=== PATIENT | female | born 1945 | race Two or more races ===

== ENCOUNTER 2019-05-07 07:22 | Inpatient (IN) | payer OTHER ==
--- NOTE | 2019-05-07 08:15 | PDOC ---
History of Present Illness - General Chief Complaint: Lightheaded Stated Complaint: WEAKNESS Time Seen by Provider: 05/07/19 07:49 History Source: Patient - History of Present Illness Initial Comments: 05/07/19 08:35 The patient is a 74 year old female with a PMH of HTN, HLD and GERD who present with acute onset of vertigo and vomiting. Symptoms woke patient from sleep around 1 a.m. this morning including a sensation of room spinning. Six episodes of NBNB emesis. Denies any associated chest pain, lightheadedness, palpitations but states when she takes a deep breath she feels like she is suffocating. Remote history of similar symptoms - cannot recall what if any work-up she had at that time. Was in her usual state of health at 10 p.m. yesterday evening when she went to bed. NKDA Surgical: B/L cataract (December 2018), Appendectmoy Social: denies toxic habits PMD: Dr. Graham Olson As per EMR, patient has had no prior evaluations in our ED. Past History - Past Medical History Allergies/Adverse Reactions: Allergies Allergy/AdvReac Type Severity Reaction Status Date / Time No Known Allergies Allergy Verified 05/07/19 07:24 Home Medications: Ambulatory Orders Losartan/Hydrochlorothiazide [Losartan-Hctz 100-12.5 mg Tab] 1 each PO DAILY Omeprazole Magnesium [Prilosec Otc] 40 mg PO DAILY 05/07/19 Pravastatin Sodium [Pravachol (Nf)] 20 mg PO HS 05/07/19 COPD: No HTN: Yes Hypercholesterolemia: Yes - Surgical History Appendectomy: Yes - Suicide/Smoking/Psychosocial Hx Smoking History: Never smoked Review of Systems - Review of Systems Constitutional: No: Chills, Fever HEENTM: No: Blurred Vision Respiratory: No: Cough, Shortness of Breath Cardiac (ROS): No: Chest Pain, Lightheadedness, Palpitations, Syncope ABD/GI: No: Constipated, Diarrhea, Nausea, Vomiting Neurological: Yes: Numbness, Dizziness *Physical Exam - Vital Signs Last Vital Signs Temp Pulse Resp BP Pulse Ox 97.8 F 71 36 H 168/95 100 05/07/19 07:27 05/07/19 07:27 05/07/19 07:27 05/07/19 07:27 05/07/19 07:27 - Physical Exam General Appearance: Yes: Nourished, Appropriately Dressed HEENT: positive: Normal Voice, Hearing Grossly Normal Neck: positive: Trachea midline, Supple Respiratory/Chest: positive: Lungs Clear, Normal Breath Sounds. negative: Labored Respiration, Rapid RR, Crackles, Wheezing Cardiovascular: positive: Regular Rhythm, Regular Rate, S1, S2 Gastrointestinal/Abdominal: positive: Normal Bowel Sounds, Soft. negative: Tender Extremity: positive: Normal Capillary Refill, Normal Inspection Integumentary: positive: Normal Color, Dry, Warm Neurologic: positive: superintendent stevedoring II-XII NML intact, Fully Oriented, Alert, Other (RUE: decreased sensation, 3/5 strength; LUE: 5/5; non-ataxic gait) Heart Score/ECG Review - ECG Impressions Comment:: 05/07/19 08:18 NSR, HR 61, TWI in V1, V3 - no previous ECG in EMR ED Treatment Course - LABORATORY CBC & Chemistry Diagram: 05/07/19 09:20 05/07/19 09:20 Medical Decision Making - Medical Decision Making 05/07/19 08:39 74 y/o female with acute onset of vertigo + emesis. No tinnitus. RR recorded as tachypenic, however at time of exam patient breathing comfortably on RA Cabrera-Hallpike negative NIHSS 2 (mild decreased sensation/strength in RUE) Plan is to obtain a Head CT to r/o basilar artery stroke vs. peripheral vertigo etiology + basic labs. Consider ACS though less likely will obtain EKG, Troponin. Reassess. 05/07/19 09:[address] negative Will trial Meclizine Labs pending 05/07/19 10:24 Troponin (-) x1, CBC, CMP unremarkable Patient reassessed @ bedside, symptomatically improved s/p Meclizine At this time patient requires admission for further evaluation to r/o cerebellar stroke w/MRI. Will give OTD of ASA Patient's PMD, Dr. Stevenson admits to Dr. Bullock, chris page service 05/07/19 12:35 Patient and son counseled @ bedside amenable to admission Case d/w Dominick Hodgson patient admitted to inpatient. Clinical Impression: Vertigo, r/o basilar artery stroke *DC/Admit/Observation/Transfer Diagnosis at time of Disposition: Vertigo - Discharge Dispostion Condition at time of disposition: Fair Decision to Admit order: Yes - Referrals - Patient Instructions - Post Discharge Activity
[2019-05-07] MEDS ORDERED: SODIUM CHLORIDE 0.9% 500 ML INFUS.BAG IV ONE (08:25)
--- NOTE | 2019-05-07 08:42 | PDOC ---
NIH Stroke Scale - Initial Evaluation Level of consciousness: Alert Ask patient the month and their age: Answers both correctly Ask patient to open & close eyes; make fist and let go: Obeys both correctly Best gaze (horizontal eye movement): Normal Visual field testing: Partial hemianopia Facial paresis (Show teeth/raise eyebrows/close eyes tight): Normal symmetrical movement Motor Function: Left Arm: Normal Motor Function: Right Arm: Normal (extends arm 90 (or 45) degrees for 10 seconds without drift Motor Function: Left Leg: Normal (extends leg 30 degrees for 5 seconds without drift) Motor Function: Right Leg: Normal (extends leg 30 degrees for 5 seconds without drift) Limb Ataxia: No ataxia Sensory(Use pinprick test arms,legs,trunk,face/side to side): Mild to moderate decrease in sensation Best language (Describe picture, name items, read sentences): No Aphasia Dysarthria (read several words): Normal articulation Extinction and Inattention: No abnormality - Total Score NIH Stroke Scale Score: 2
[2019-05-07] MEDS ORDERED: MECLIZINE HCL 12.5 MG TABLET PO ONE (09:07)
[2019-05-07] MEDS ORDERED: MECLIZINE HCL 12.5 MG TABLET ONE (09:14)
[2019-05-07 09:43] LABS: BASO % 0.5 % (0-2.0); EOS % 0.3 % (0-4.5); HEMATOCRIT 38.8 % (32.4-45.2); HEMOGLOBIN 13.3 GM/dL (10.7-15.3); LYMPH % 15.8 % (8-40); MCH 30.6 pg (25.7-33.7); MCHC 34.3 g/dl (32.0-36.0); MEAN CELL VOLUME 89.3 fl (80-96); MEAN PLT VOLUME 8.8 fl (7.5-11.1); MONO % 6.7 % (3.8-10.2); NEUT % 76.7 % (42.8-82.8); PLATELET COUNT 212 K/MM3 (134-434); RBC 4.34 M/mm3 (3.60-5.2); RDW 13.3 % (11.6-15.6); WHITE BLOOD COUNT 7.7 K/mm3 (4.0-10.0)
--- NOTE | 2019-05-07 10:07 | PDOC ---
Attending Attestation - Resident Resident Name: MilaMilena - ED Attending Attestation I have performed the following: I have examined & evaluated the patient, The case was reviewed & discussed with the resident, I agree w/resident's findings & plan - HPI HPI: 05/07/19 10:07 74y/o F h/o HTN, high cholesterol p/w vertigo. Pt in usaz, went to sleep at 10am , awoke at 1:30am with vertigo, which has been persistent and waxing/waning in severity. associated with n/v and slight headache, no vision change, ? L sided parestesias but no weakness. no head injury. has had vertigo in the past but not persistent like this. - Physicial Exam PE: 05/07/19 10:09 vss, rr normal (triage rate noted), well appearing speaking on cell phone NEURO: Mental status: The patient is alert and oriented x3. Cranial nerves: Cranial nerves II through XII are intact Motor: The upper extremities are 5 over 5 in all muscle groups, LUE 4/5 likely effort related, no PD. The lower extremities are 5 over 5 in all muscle groups. No pronator drift. Sensation: Sensation is intact to light touch throughout. Cerebellar: Rzrvyi-ikvdeh-yxzq is normal in both upper extremities. Heel-knee- nieves is normal in both lower extremities. Reflexes: 2+ and symmetric in the upper and lower extremities. Gait: Normal. Heel and toe walking are normal. Tandem gait is normal. - Medical Decision Making 05/07/19 10:16 75-year-old female with history of hypertension presents with acute onset vertigo and vomiting since 1:30 AM, last normal bowel 11 hours prior to admission, neuro exam is overall nonfocal, has some subjective left-sided paresthesias. CT head shows no acute pathology EKG shows LVH but no acute ischemic changes Labs sent We'll give aspirin, meclizine Admit for stroke workup and MRI for vertigo in an elderly patient with CVA risk factors. Heart Score/ECG Review #1 ECG reviewed & interpreted by me at: 07:30 General ECG Interpretation: Sinus Rhythm, Normal Rate (61), Normal Intervals ( qtc 465, LVH), No acute ischemic changes
[2019-05-07 10:17] LABS: ALBUMIN 3.9 g/dl (3.4-5.0); ALK PHOS 126 U/L (45-117); ANION GAP 8 MMOL/L (8-16); BILIRUBIN,TOTAL 0.5 mg/dL (0.2-1); BLOOD UREA NITROGEN 13.7 mg/dL (7-18); CHLORIDE 102 mmol/L (98-107); CO2 28 mmol/L (21-32); CREATININE 0.9 mg/dL (0.55-1.3); GLUCOSE,RANDOM 123 mg/dL (74-106); POTASSIUM 4.4 mmol/L (3.5-5.1); SGOT/AST 38 U/L (15-37); SGPT/ALT 28 U/L (13-61); SODIUM 137 mmol/L (136-145); TOT PROT 7.7 g/dl (6.4-8.2)
[2019-05-07] MEDS ORDERED: ASPIRIN 81 MG CHEWABLE TABLETS PO ONE (10:55)
--- NOTE | 2019-05-07 10:56 | EKG ---
Test Reason : Blood Pressure : / mmHG Vent. Rate : 061 BPM Atrial Rate : 061 BPM P-R Int : 158 ms QRS Dur : 072 ms QT Int : 462 ms P-R-T Axes : 043 -19 -07 degrees QTc Int : 465 ms POOR DATA QUALITY, INTERPRETATION MAY BE ADVERSELY AFFECTED NORMAL SINUS RHYTHM MINIMAL VOLTAGE CRITERIA FOR LVH, MAY BE NORMAL VARIANT NONSPECIFIC ST AND T WAVE ABNORMALITY ABNORMAL ECG NO PREVIOUS ECGS AVAILABLE Confirmed by Leonel Sanchez ([id number]) on 05/07/2019 10:56:28 AM Referred By: Confirmed By:Leonel Sanchez
[2019-05-07] MEDS ORDERED: ASPIRIN 81 MG CHEWABLE TABLETS ONE (11:00)
[2019-05-07] MEDS ORDERED: ACETAMINOPHEN 325 MG TABLET (FP) PO PRN (12:03)
[2019-05-07] MEDS ORDERED: HYDROCHLOROTHIAZIDE 12.5 MG CAPSULE (FP) PO SCH (12:15)
[2019-05-07] MEDS ORDERED: PANTOPRAZOLE 40 MG TABLET (FP) ONE (12:45)
[2019-05-07] MEDS ORDERED: LOSARTAN POTASSIUM 50 MG TABLET (FP) ONE (12:46)
[2019-05-07] MEDS ORDERED: HYDROCHLOROTHIAZIDE 25 MG TABLET (FP) ONE (12:46)
[2019-05-07] MEDS: PANTOPRAZOLE 20 MG TABLET (FP) PO SCH (12:51)
[2019-05-07] MEDS: LOSARTAN POTASSIUM 50 MG TABLET (FP) PO SCH (12:51)
--- NOTE | 2019-05-07 13:57 | HP ---
Admitting History and Physical - Primary Care Physician PCP: Lorelei Bullock - Admission Chief Complaint: Dizziness. Weakness History of Present Illness: brennon Chang 74 yo female came in to [facility] with cc of dizziness and generalized weakness. Upon evaluation, her labs were unremarkable, CT head negative, VSS. She was given meclizine, which improved her symptoms. However, ER PE showed mild LUE weakness. Upon my examination, pt strength RUE+5,LUE+4, BLLE +5. History Source: Patient Limitations to Obtaining History: Language Barrier (translation provided by son at bedside) - Past Medical History Cardiovascular: Yes: HTN, Hyperlipdemia Gastrointestinal: Yes: GERD - Smoking History Smoking history: Never smoked Home Medications - Allergies Allergies/Adverse Reactions: Allergies Allergy/AdvReac Type Severity Reaction Status Date / Time No Known Allergies Allergy Verified 05/07/19 07:24 - Home Medications Home Medications: Ambulatory Orders Losartan/Hydrochlorothiazide [Losartan-Hctz 100-12.5 mg Tab] 1 each PO DAILY Omeprazole Magnesium [Prilosec Otc] 40 mg PO DAILY 05/07/19 Pravastatin Sodium [Pravachol (Nf)] 20 mg PO HS 05/07/19 Review of Systems - Review of Systems Constitutional: reports: Weakness Eyes: reports: No Symptoms HENT: reports: No Symptoms Neck: reports: No Symptoms Cardiovascular: reports: No Symptoms Respiratory: reports: No Symptoms Gastrointestinal: reports: No Symptoms Breasts: reports: No Symptoms Reported Musculoskeletal: reports: No Symptoms Integumentary: reports: No Symptoms Neurological: reports: Dizziness Endocrine: reports: No Symptoms Hematology/Lymphatic: reports: No Symptoms Psychiatric: reports: No Symptoms Physical Examination Vital Signs: Vital Signs Temperature 97.8 F 05/07/19 07:27 Pulse Rate 59 L 05/07/19 12:51 Respiratory Rate 17 05/07/19 12:51 Blood Pressure 154/91 05/07/19 12:51 O2 Sat by Pulse Oximetry (%) 94 L 05/07/19 12:51 Constitutional: Yes: Well Nourished, No Distress, Calm Cardiovascular: Yes: Regular Rate and Rhythm Respiratory: Yes: Regular Gastrointestinal: Yes: Normal Bowel Sounds, Soft Renal/: Yes: WNL Musculoskeletal: Yes: WNL Extremities: Yes: WNL Edema: No Peripheral Pulses WNL: Yes Neurological: Yes: Alert, Oriented ...Motor Strength: LUE (+4), LLE (+5), RUE (+5), RLE (+5) Psychiatric: Yes: Alert, Oriented Labs: CBC, BMP 05/07/19 09:20 05/07/19 09:20 Imaging - Results Cat Scan: Report Reviewed MRI: Pending Problem List - Problems (1) Left arm weakness Assessment/Plan: -MRI brain -Neurology eval Code(s): R29.898 - OTH SYMPTOMS AND SIGNS INVOLVING THE MUSCULOSKELETAL SYSTEM (2) Vertigo Assessment/Plan: -Meclizine 25 mg po tid prn -Check orthostatics Code(s): R42 - DIZZINESS AND GIDDINESS Assessment/Plan see problem list
[2019-05-07] MEDS ORDERED: MECLIZINE HCL 25 MG TABLET (FP) PO PRN (13:59)
[2019-05-07 16:56] LABS: CHOLESTEROL 221 mg/dL (50-200); HDL CHOLESTEROL 36 mg/dL (40-60); TRIGLYCERIDES 226 mg/dL (0-150)
[2019-05-07] MEDS ORDERED: ATORVASTATIN CA 40 MG TABLET (FP) PO SCH (22:00)
[2019-05-07] MEDS ORDERED: ATORVASTATIN CA 40 MG TABLET (FP) ONE (22:05)
[2019-05-08 03:18] VITALS: BMI 23.0
--- NOTE | 2019-05-08 09:40 | CONSULT ---
Consult - text type - Consultation Consultation Note: Neurology History of Present Illness Chief Complaint: Lightheaded Stated Complaint: WEAKNESS - History of Present Illness The patient is a 74 year old female with a PMH of HTN, HLD and GERD who present with acute onset of vertigo and vomiting. Symptoms woke patient from sleep around 1 a.m. this morning including a sensation of room spinning. Six episodes of NBNB emesis. Denies any associated chest pain, lightheadedness, palpitations but states when she takes a deep breath she feels like she is suffocating. Remote history of similar symptoms - cannot recall what if any work-up she had at that time. Ct head was completed and did not show any structural abnormalities. MRI of the brain was completed overnight and reviewed and discussed with the patient in detail and did not show anyevidence of infarct. The patient reports that her symptoms have improved. I discussed with her further cardiovascular risk reduction including blood pressure control and monitoring hyperlipidemia. She remains on a statin can continue. Past History - Past Medical History Allergies/Adverse Reactions: Allergies Allergy/AdvReac Type Severity Reaction Status Date / Time No Known Allergies Allergy Verified 05/07/19 07:24 Home Medications: Ambulatory Orders Losartan/Hydrochlorothiazide [Losartan-Hctz 100-12.5 mg Tab] 1 each PO DAILY Omeprazole Magnesium [Prilosec Otc] 40 mg PO DAILY 05/07/19 Pravastatin Sodium [Pravachol (Nf)] 20 mg PO HS 05/07/19 COPD: No HTN: Yes Hypercholesterolemia: Yes - Surgical History Appendectomy: Yes - Suicide/Smoking/Psychosocial Hx Smoking History: Never smoked Family history: HTN Denies toxic habits Review of Systems REVIEW OF SYSTEMS CONSTITUTIONAL: Absent: fever, chills, diaphoresis, + generalized weakness, malaise HEENT: Absent: rhinorrhea, nasal congestion, throat pain, throat swelling, difficulty swallowing, mouth swelling, ear pain, eye pain, visual changes CARDIOVASCULAR: Absent: chest pain, syncope, palpitations, irregular heart rate, lightheadedness , peripheral edema RESPIRATORY: Absent: cough, shortness of breath, dyspnea with exertion, orthopnea, wheezing, stridor, hemoptysis GASTROINTESTINAL: Absent: abdominal pain, abdominal distension, nausea GENITOURINARY: Absent: dysuria, frequency, urgency, MUSCULOSKELETAL: Absent: myalgia, SKIN: Absent: rash, itching, pallor HEMATOLOGIC/IMMUNOLOGIC: Absent: easy bleeding, easy bruising, lymphadenopathy, frequent infections ENDOCRINE: Absent: unexplained weight gain, unexplained weight loss, heat intolerance, cold intolerance NEUROLOGIC: Absent: headache, focal weakness or paresthesias, dizziness, seizure, PSYCHIATRIC: Absent: anxiety, depression, suicidal or homicidal ideation, hallucinations. *Physical Exam Vital Signs Period Temp Pulse Resp BP Sys/Muhammad Pulse Ox Last 24 Hr 97.5 F-98.5 F 59-65 17-20 135-172/74-91 94-97 - Physical Exam General Appearance: Yes: Nourished, Appropriately Dressed HEENT: positive: Normal Voice, Hearing Grossly Normal Neck: positive: Trachea midline, Supple Respiratory/Chest: positive: Lungs Clear, Normal Breath Sounds. negative: Labored Respiration, Rapid RR, Crackles, Wheezing Cardiovascular: positive: Regular Rhythm, Regular Rate, S1, S2 Gastrointestinal/Abdominal: positive: Normal Bowel Sounds, Soft. negative: Tender Extremity: positive: Normal Capillary Refill, Normal Inspection Integumentary: positive: Normal Color, Dry, Warm Neurologic: Cn intact, Strength intact b/l and full to confrontation,, sensory intact, finger to nose normal Heart Score/ECG Review NSR, HR 61, TWI in V1, V3 - no previous ECG in EMR CBCD WBC 7.7 K/mm3 (4.0-10.0) 05/07/19 09:20 RBC 4.34 M/mm3 (3.60-5.2) 05/07/19 09:20 Hgb 13.3 GM/dL (10.7-15.3) 05/07/19 09:20 Hct 38.8 % (32.4-45.2) 05/07/19 09:20 MCV 89.3 fl (80-96) 05/07/19 09:20 MCHC 34.3 g/dl (32.0-36.0) 05/07/19 09:20 RDW 13.3 % (11.6-15.6) 05/07/19 09:20 Plt Count 212 K/MM3 (134-434) 05/07/19 09:20 MPV 8.8 fl (7.5-11.1) 05/07/19 09:20 CMP Sodium 137 mmol/L (136-145) 05/07/19 09:20 Potassium 4.4 mmol/L (3.5-5.1) 05/07/19 09:20 Chloride 102 mmol/L (98-107) 05/07/19 09:20 Carbon Dioxide 28 mmol/L (21-32) 05/07/19 09:20 Anion Gap 8 MMOL/L (8-16) 05/07/19 09:20 BUN 13.7 mg/dL (7-18) 05/07/19 09:20 Creatinine 0.9 mg/dL (0.55-1.3) 05/07/19 09:20 Random Glucose 123 mg/dL (74-106) H 05/07/19 09:20 Calcium 10.0 mg/dL (8.5-10.1) 05/07/19 09:20 Total Bilirubin 0.5 mg/dL (0.2-1) 05/07/19 09:20 AST 38 U/L (15-37) H 05/07/19 09:20 ALT 28 U/L (13-61) 05/07/19 09:20 Alkaline Phosphatase 126 U/L (45-117) H 05/07/19 09:20 Total Protein 7.7 g/dl (6.4-8.2) 05/07/19 09:20 Albumin 3.9 g/dl (3.4-5.0) 05/07/19 09:20 CARDIAC ENZYMES Creatine Kinase 188 U/L (26-192) 05/07/19 09:20 Troponin I < 0.02 ng/ml (0.00-0.05) 05/07/19 09:20 Medical Decision Making The patient is a 74 year old female with a PMH of HTN, HLD and GERD who present with acute onset of vertigo and vomiting. Symptoms woke patient from sleep around 1 a.m. this morning including a sensation of room spinning. Six episodes of NBNB emesis. Denies any associated chest pain, lightheadedness, palpitations but states when she takes a deep breath she feels like she is suffocating. Remote history of similar symptoms - cannot recall what if any work-up she had at that time. Ct head was completed and did not show any structural abnormalities. MRI of the brain was completed overnight and reviewed and discussed with the patient in detail and did not show anyevidence of infarct. The patient reports that her symptoms have improved. I discussed with her further cardiovascular risk reduction including blood pressure control and monitoring hyperlipidemia. She remains on a statin can continue. can give meclizine as needed for vertigo,adequate hydration discussed and recommended. Medication compliance recommended. Maintain normotensive blood pressure range, outpatient follow-up recommended.
[2019-05-08] MEDS ORDERED: ENOXAPARIN NA (PORCINE) 40 MG/0.4 ML DISP.SYRIN SQ SCH (10:00)
[2019-05-08] MEDS ORDERED: amLODIPine BESYLATE 2.5 MG TABLET (FP) PO SCH (10:30)
--- NOTE | 2019-05-08 10:35 | PN ---
Progress Note, Physician Chief Complaint: Vertigo Weakness History of Present Illness: NAD feels better Seen by Neurology MRI brain+ CT head negative mild BP elevation - Current Medication List Current Medications: Active Medications Acetaminophen (Tylenol -) 650 mg PO Q4H PRN PRN Reason: PAIN OR FEVER Amlodipine Besylate (Norvasc -) 2.5 mg PO DAILY [facility] Atorvastatin Calcium (Lipitor -) 40 mg PO HS [facility] Last Admin: 05/07/19 22:10 Dose: 40 mg Enoxaparin Sodium (Lovenox -) 40 mg SQ DAILY [facility] Losartan Potassium (Cozaar -) 100 mg PO DAILY [facility] Last Admin: 05/07/19 12:51 Dose: 100 mg Meclizine HCl (Antivert -) 25 mg PO Q8H PRN PRN Reason: VERTIGO Pantoprazole Sodium (Protonix -) 20 mg PO DAILY [facility] Last Admin: 05/07/19 12:51 Dose: 20 mg - Objective Vital Signs: Vital Signs Temperature 97.5 F L 05/08/19 06:00 Pulse Rate 61 05/08/19 06:00 Respiratory Rate 20 05/08/19 06:00 Blood Pressure 144/83 05/08/19 06:00 O2 Sat by Pulse Oximetry (%) 96 05/08/19 02:13 Constitutional: Yes: Well Nourished, No Distress, Calm Cardiovascular: Yes: Regular Rate and Rhythm Respiratory: Yes: Regular Gastrointestinal: Yes: Normal Bowel Sounds, Soft Genitourinary: Yes: WNL Musculoskeletal: Yes: WNL Extremities: Yes: WNL Edema: No Peripheral Pulses WNL: Yes Neurological: Yes: Alert, Oriented Psychiatric: Yes: Alert, Oriented Labs: CBC, BMP 05/07/19 09:20 05/07/19 09:20 Problem List - Problems (1) Left arm weakness Assessment/Plan: -MRI brain-negative -Neurology eval appreciated Code(s): R29.898 - OTH SYMPTOMS AND SIGNS INVOLVING THE MUSCULOSKELETAL SYSTEM (2) Vertigo Assessment/Plan: -Meclizine 25 mg po tid prn Code(s): R42 - DIZZINESS AND GIDDINESS (3) HTN (hypertension) Assessment/Plan: -Continue losartan/hctz 100/12.5 mg po daily -Add amlodipine 2.5 mg po daily, can be titrated up outpatient for optimum BP control Code(s): I10 - ESSENTIAL (PRIMARY) HYPERTENSION (4) Hyperlipidemia Assessment/Plan: -LDL at 144 with goal <100 mg/dl -Switch to atorvastatin 40 mg po HS -Repeat lipid panel o/p in 3 months -Encouraged and educated on Mediterranean diet Code(s): E78.5 - HYPERLIPIDEMIA, UNSPECIFIED Assessment/Plan see problem list
--- NOTE | 2019-05-08 10:42 | DS ---
Physical Examination Vital Signs: Vital Signs Temperature 97.5 F L 05/08/19 06:00 Pulse Rate 61 05/08/19 06:00 Respiratory Rate 20 05/08/19 06:00 Blood Pressure 144/83 05/08/19 06:00 O2 Sat by Pulse Oximetry (%) 96 05/08/19 02:13 Findings/Remarks: Ms Garcia, pleasant 74 yo female came in to [facility] with cc of dizziness and generalized weakness. Upon evaluation, her labs were unremarkable, CT head negative, VSS. She was given meclizine, which improved her symptoms. However, ER PE showed mild LUE weakness. Upon my examination, pt strength RUE+5,LUE+4, BLLE +5. Constitutional: Yes: Well Nourished, No Distress, Calm Cardiovascular: Yes: Regular Rate and Rhythm Respiratory: Yes: Regular Gastrointestinal: Yes: Normal Bowel Sounds, Soft Renal/: Yes: WNL Musculoskeletal: Yes: WNL Extremities: Yes: WNL Edema: No Peripheral Pulses WNL: Yes Neurological: Yes: Alert, Oriented Psychiatric: Yes: Alert, Oriented Labs: CBC, BMP 05/07/19 09:20 05/07/19 09:20 Discharge Summary Problems reviewed: Yes Reason For Visit: VERTIGO Current Active Problems HTN (hypertension) (Acute) Hyperlipidemia (Acute) Left arm weakness (Acute) Vertigo (Acute) Laboratory Last Values WBC 7.7 K/mm3 (4.0-10.0) 05/07/19 09:20 RBC 4.34 M/mm3 (3.60-5.2) 05/07/19 09:20 Hgb 13.3 GM/dL (10.7-15.3) 05/07/19 09:20 Hct 38.8 % (32.4-45.2) 05/07/19 09:20 MCV 89.3 fl (80-96) 05/07/19 09:20 MCH 30.6 pg (25.7-33.7) 05/07/19 09:20 MCHC 34.3 g/dl (32.0-36.0) 05/07/19 09:20 RDW 13.3 % (11.6-15.6) 05/07/19 09:20 Plt Count 212 K/MM3 (134-434) 05/07/19 09:20 MPV 8.8 fl (7.5-11.1) 05/07/19 09:20 Absolute Neuts (auto) 5.9 K/mm3 (1.5-8.0) 05/07/19 09:20 Neutrophils % 76.7 % (42.8-82.8) 05/07/19 09:20 Lymphocytes % 15.8 % (8-40) 05/07/19 09:20 Monocytes % 6.7 % (3.8-10.2) 05/07/19 09:20 Eosinophils % 0.3 % (0-4.5) 05/07/19 09:20 Basophils % 0.5 % (0-2.0) 05/07/19 09:20 Nucleated RBC % 0 % (0-0) 05/07/19 09:20 Sodium 137 mmol/L (136-145) 05/07/19 09:20 Potassium 4.4 mmol/L (3.5-5.1) 05/07/19 09:20 Chloride 102 mmol/L (98-107) 05/07/19 09:20 Carbon Dioxide 28 mmol/L (21-32) 05/07/19 09:20 Anion Gap 8 MMOL/L (8-16) 05/07/19 09:20 BUN 13.7 mg/dL (7-18) 05/07/19 09:20 Creatinine 0.9 mg/dL (0.55-1.3) 05/07/19 09:20 Est GFR (CKD-EPI)AfAm 74.04 05/07/19 09:20 Est GFR (CKD-EPI)NonAf 63.88 05/07/19 09:20 Random Glucose 123 mg/dL (74-106) H 05/07/19 09:20 Calcium 10.0 mg/dL (8.5-10.1) 05/07/19 09:20 Total Bilirubin 0.5 mg/dL (0.2-1) 05/07/19 09:20 AST 38 U/L (15-37) H 05/07/19 09:20 ALT 28 U/L (13-61) 05/07/19 09:20 Alkaline Phosphatase 126 U/L (45-117) H 05/07/19 09:20 Creatine Kinase 188 U/L (26-192) 05/07/19 09:20 Creatine Kinase Index No Result Required. 05/07/19 09:20 CK-MB (CK-2) < 1.0 ng/mL (0.5-3.6) 05/07/19 09:20 Troponin I < 0.02 ng/ml (0.00-0.05) 05/07/19 09:20 Total Protein 7.7 g/dl (6.4-8.2) 05/07/19 09:20 Albumin 3.9 g/dl (3.4-5.0) 05/07/19 09:20 Triglycerides 226 mg/dL (0-150) H 05/07/19 09:20 Cholesterol 221 mg/dL (50-200) H 05/07/19 09:20 Total LDL Cholesterol 144 mg/dL (5-100) H 05/07/19 09:20 HDL Cholesterol 36 mg/dL (40-60) L 05/07/19 09:20 Vital Signs Temp 97.5 F L 05/08/19 06:00 Pulse 61 05/08/19 06:00 Resp 20 05/08/19 06:00 BP 144/83 05/08/19 06:00 Pulse Ox 96 05/08/19 02:13 Intake & Output 05/07/19 05/07/19 05/08/19 11:59 23:59 11:59 Intake Total 480 200 Balance 480 200 Weight 50 kg 55.61 kg Intake: Oral 480 200 Other: Voiding Method Toilet # Unmeasured Voids Void 2 2 Height 5 ft 1.5 in 5 ft 1.2 in Body Mass Index (BMI) 20.5 23.0 Weight Measurement Method Standing Scale Hospital Course: MRI brain negative CT head negative Labs unremarkable Neurology eval Meclizine 25 mg po TID PRN for vertigo Started on amlodipine 5 mg po daily Pravastatin changed to atorvastatin 40 mg po HS Condition: Stable - Instructions Diet, Activity, Other Instructions: Continue Losartan/hctz 100/12.5 mg once daily Start amlodipine 5 mg once a day in AM Follow up with your PCP within 1-2 weeks Referrals: Lorelei Bullock MD [Staff Physician] - Disposition: HOME - Home Medications Comprehensive Discharge Medication List: Ambulatory Orders Losartan/Hydrochlorothiazide [Losartan-Hctz 100-12.5 mg Tab] 1 each PO DAILY 09/ 24/19 Omeprazole Magnesium [Prilosec Otc] 40 mg PO DAILY 05/07/19 Acetaminophen [Tylenol .Regular Strength -] 650 mg PO Q4H PRN tablet 05/08/19 Amlodipine Besylate [Norvasc -] 5 mg PO DAILY #30 tablet 05/08/19 Atorvastatin Ca [Lipitor] 40 mg PO HS #30 tablet 05/08/19 Meclizine HCl [Antivert -] 25 mg PO Q8H PRN #90 tablet 05/08/19
[2019-05-08] MEDS ORDERED: amLODIPine BESYLATE 5 MG TABLET (FP) PO SCH (10:45)
[2019-05-08] MEDS: LOSARTAN POTASSIUM 50 MG TABLET (FP) PO SCH (10:57)
[2019-05-08] MEDS: PANTOPRAZOLE 20 MG TABLET (FP) PO SCH (10:57)
[2019-05-08] MEDS ORDERED: ONDANSETRON 4 MG/2 ML VIAL IVPUSH PRN (14:45)
[2019-05-08 18:58] VITALS: BP 146/86; PULSE 67; TEMP 98.5
== END 2019-05-08 19:15 | disposition home or self-care (01) | DRG 149 ==
LOC: JER 07:22 → JERBED 11:25 → J5S 05-08 01:02
PROVIDERS: ADMIT Family Medicine; ATTEND Family Medicine
DX: R42 Dizziness and giddiness (principal); I10 Essential (primary) hypertension; R29.898 Other symptoms and signs involving the musculoskeletal system; E78.5 Hyperlipidemia, unspecified; K21.9 Gastro-esophageal reflux disease without esophagitis
CPT/HCPCS: 36415; 70450-TC; 70551-TC; 71045-TC-FY; 80053; 80061; 82550; 82553; 83721; 84484; 85025; 93005; 93010; 99285-25